=== PATIENT | male | born 1980 | race Caucasian/White ===

== ENCOUNTER 2016-08-03 19:06 | Observation (INO) | payer OTHER ==
[2016-08-03] VITALS (118 sets, daily range): BP systolic 114; BP diastolic 83; PULSE 67; TEMP 98; O2SAT 89–99
[~2016-08-03] VITALS: Ht 172.7 cm; Wt 88.9 kg
[2016-08-03 19:45] LABS: BASO % 0.2 % (0.0-2.0); EOS % 0.5 % (0-4.0); GRAN # 4.4 (1.4-6.5); GRAN % 74.5 % (42.2-75.2); HEMATOCRIT 38.9 % (42.0-52.0); HEMOGLOBIN 13.6 g/dl (13.5-18.0); LYMPH # 1.1 (1.2-3.4); LYMPH % 18.9 % (20.0-51.0); MEAN CELL VOLUME 85 fl (80.0-100.0); MEAN CORPUSCULAR HEMOGLOBIN 30 pg (27.0-31.0); MEAN CORPUSCULAR HGB CONC 35 g/dl (33.0-37.0); MEAN PLATELET VOLUME 9.5 fl (7.4-10.4); MONO # 0.3 (0.1-0.6); MONO % 5.6 % (1.7-9.3); PLATELET COUNT 244 K/mm3 (130-400); RED BLOOD COUNT 4.56 M/mm3 (4.20-5.60); REDCELL DISTRIBUTION WIDTH-CV 12.1 % (11.5-14.5); WHITE BLOOD COUNT 5.9 K/mm3 (4.8-10.8)
[2016-08-03 19:50] LABS: ADJUSTED CALCIUM 8.5 mg/dL (8.4-10.2); ALANINE AMINOTRANSFERASE 64 U/L (21-72); ALBUMIN 4.1 gm/dL (3.5-5.0); ALKALINE PHOSPHATASE 60 U/L (50-136); BILIRUBIN,TOTAL 0.8 mg/dL (0.0-1.0); BLOOD UREA NITROGEN 18 mg/dL (9-20); CALCIUM 8.6 mg/dL (8.4-10.2); CARBON DIOXIDE 25 mmol/L (22-30); CREATININE, serum 0.89 mg/dL (0.66-1.25); GLUCOSE 138 mg/dL (74-106); POTASSIUM 4.1 mmol/L (3.4-5.0); SODIUM 139 mmol/L (137-145); TOTAL PROTEIN 6.9 gm/dL (6.4-8.2)
[2016-08-03 19:51] LABS: ACETAMINOPHEN < 10 ug/mL (10-30); ANION GAP 12 mmol/L (7-16); CHLORIDE 102 mmol/L (98-107); SALICYLATE < 1.0 mg/dL
[2016-08-04] VITALS (196 sets, daily range): BP systolic 92–106; BP diastolic 60–61; PULSE 42–70; TEMP 97.6–98; O2SAT 39–99
== END 2016-08-04 10:45 | disposition home or self-care (01) ==
LOC: COL.ER 19:06 → ICU 19:35
PROVIDERS: Emergency Medicine
DX: T40.1X1A Poisoning by heroin, accidental (unintentional), initial encounter (principal)
CPT/HCPCS: 99222-AI; 99239; G0378; J2405; J7030